=== PATIENT | male | born 1985 | race Caucasian/White ===

== ENCOUNTER 2024-08-31 17:45 | Emergency (ER) | payer OTHER ==
[~2024-08-31] VITALS: Ht 188 cm; Wt 77.0 kg
[2024-08-31] MEDS ORDERED: AMOX TR-K CLV1 EAC1 PO (20:41)
[2024-08-31] MEDS ORDERED: TRAMADOL HCL 50 MG HOME.PACK PO ONE (20:45)
[2024-08-31] MEDS ORDERED: AMOXICILLIN/CLAVULANATE K 875 MG HOME.PACK PO ONE (20:45)
[2024-08-31 20:48] VITALS: BP 128/76
== END 2024-08-31 21:10 | disposition home or self-care (01) ==
LOC: ED 17:45
DX: S61.300A Unspecified open wound of right index finger with damage to nail, initial encounter (principal); I10 Essential (primary) hypertension; F43.10 Post-traumatic stress disorder, unspecified; W23.0XXA Caught, crushed, jammed, or pinched between moving objects, initial encounter
CPT/HCPCS: 73140; 99283; A9270